=== PATIENT | female | born 1980 | race Caucasian/White ===

== ENCOUNTER 2017-01-31 15:51 | Emergency (ER) | payer MEDICAID ==
[~2017-01-31] VITALS: Ht 165.1 cm; Wt 56.4 kg
[2017-01-31 15:54] VITALS: BP 115/81
== END 2017-01-31 17:57 | disposition home or self-care (01) ==
LOC: ED 17:00
DX: S62.101A Fracture of unspecified carpal bone, right wrist, initial encounter for closed fracture (principal); M77.51 Other enthesopathy of right foot and ankle; F17.200 Nicotine dependence, unspecified, uncomplicated; X58.XXXA Exposure to other specified factors, initial encounter; Y93.89 Activity, other specified; Y92.89 Other specified places as the place of occurrence of the external cause; Y99.9 Unspecified external cause status
CPT/HCPCS: 29125; 99284

== ENCOUNTER 2017-02-02 17:08 | Emergency (ER) | payer MEDICAID ==
[~2017-02-02] VITALS: Ht 165.1 cm; Wt 56.2 kg
[2017-02-02 17:16] VITALS: BP 115/77
[2017-02-02] MEDS ORDERED: ALPR2TAB2 PO (17:29)
[2017-02-02] MEDS ORDERED: CALCIUM PO (17:29)
== END 2017-02-02 19:43 | disposition home or self-care (01) ==
LOC: ED 19:00
DX: M25.531 Pain in right wrist (principal); F17.200 Nicotine dependence, unspecified, uncomplicated
CPT/HCPCS: 29125; 99283